=== PATIENT | female | born 1970 | race American Indian/Alaskan Native ===

== ENCOUNTER 2020-12-10 16:26 | Emergency (ER) | payer MEDICAID ==
[2020-12-10 16:32] VITALS: BP 174/106
[2020-12-10] MEDS ORDERED: KETOROLAC 30 MG/1 ML INJ IM ONE (16:44)
--- NOTE | 2020-12-10 16:47 | Emergency Department Report ---
Upper Extremity - HPI Chief Complaint: Extremity Injury, Upper Stated Complaint: RT SHOULDER PAIN Time Seen by Provider: 12/10/20 16:39 Upper Extremity: Right Shoulder Occurred When: 3 Days Mechanism: Unsure Severity: severe Symptoms: Yes Pain with Movement, No Deformity, No Limited Range of Movement Other History: 50-year-old female presents to the emergency room for acute right shoulder pain for 3 days. Patient states that the pain is sharp and constant nothing makes it better. She denies any injury. She states she took a tramadol earlier this morning with no improvement. Patient does not currently have a primary care provider at this time. Patient states minimum movement makes it worse lying down makes it worse. Patient also reported she noted that her blood pressure has been elevated. She is currently on no medications. She has no known drug allergies. ED Review of Systems ROS: Stated complaint: RT SHOULDER PAIN Other details as noted in HPI Comment: All other systems reviewed and negative ED Past Medical Hx - Past Medical History Previous Medical History?: No - Social History Smoking Status: Current Every Day Smoker Substance Use Type: Alcohol - Medications Home Medications: Home Medications Medication Instructions Recorded Confirmed Last Taken Type Diclofenac Sodium 50 mg PO BID PRN #20 tablet. 12/10/20 Unknown Rx methOCARBAMOL [Robaxin TAB] 500 mg PO BID #20 tab 12/10/20 Unknown Rx Upper Extremity Exam - Exam General: Vital signs noted. No distress. Alert and acting appropriately. Head and Torso: Yes Back Tenderness, No Neck Tenderness, No Chest/Lungs Abnormality, No Abdominal Tenderness Shoulder Exam: Yes Shoulder Tenderness, Yes Normal Range of Motion in Shoulder, No Clavicle Tenderness, No Shoulder Deformity, No AC Joint Tenderness Arm Exam: No Arm/Humerus Tenderness, No Arm Deformity Elbow: No Elbow Tenderness, No Normal Range of Motion in Elbow, No Elbow Deformity Forearm: No Forearm Tenderness, No Forearm Deformity, No Pain with Pronation, No Pain with Supination Wrist: Yes Normal ROM in Wrist, No Wrist Tenderness, No Wrist Deformity, No Snuffbox Tenderness, No Pain with Axial Thumb Compression Hand: Yes Normal ROM in Digit(s), No Hand Tenderness, No Hand Deformity, No Digit Tenderness, No Digit(s) Deformity, No Tendon Dysfunction ED Course Vital Signs 12/10/20 16:30 Temperature 98.0 F Pulse Rate 65 Respiratory 20 Rate Blood Pressure 174/106 O2 Sat by Pulse 96 Oximetry ED Medical Decision Making - Radiology Data Radiology results: report reviewed Patient: ANNIE SINGER MR#: [id number] 348 : 1970 Acct:[id number] Age/Sex: 50 / F ADM Date: 12/10/20 Loc: ED Attending Dr: Ordering Physician: SEBASTIAN HERNANDEZ Date of Service: 12/10/20 Procedure(s): XR shoulder 2+V RT Accession Number(s): [id number] cc: SEBASTIAN HERNANDEZ Fluoro Time In Minutes: RIGHT SHOULDER 3 VIEWS INDICATION / CLINICAL INFORMATION: Right shoulder pain. COMPARISON: None available. FINDINGS: BONES/JOINT(S): No acute fracture or subluxation. No significant degenerative changes. SOFT TISSUES: No significant abnormality. ADDITIONAL FINDINGS: None. Signer Name: Alexander De Anda MD Signed: 12/10/2020 5:21 PM Workstation Name: [id number] Transcribed By: MICHELLE Dictated By: Alexander De Anda MD Electronically Authenticated By: Alexander De Anda MD Signed Date/Time: 12/10/201720 DD/ 20 TD/TT: - Medical Decision Making 50-year-old female presents to the emergency room for acute right shoulder pain for 3 days. Patient states that the pain is sharp and constant nothing makes it better. She denies any injury. She states she took a tramadol earlier this morning with no improvement. Patient does not currently have a primary care provider at this time. Patient states minimum movement makes it worse lying down makes it worse. Patient also reported she noted that her blood pressure has been elevated. She is currently on no medications. She has no known drug allergies. X-ray has been ordered. Toradol 30 mg have been ordered. Critical care attestation.: If time is entered above; I have spent that time in minutes in the direct care of this critically ill patient, excluding procedure time. ED Disposition Clinical Impression: Pain of right scapula, Right shoulder strain Disposition: DC-01 TO HOME OR SELFCARE Is pt being admited?: No Does the pt Need Aspirin: No Condition: Stable Instructions: Chest Pain (ED), Muscle Strain, [id number] Additional Instructions: X-ray of right shoulder is negative for any acute findings. As I discussed you may need to follow-up with an orthopedic provider for further evaluation and imaging. I have listed several below for your convenience. Prescriptions: Diclofenac Sodium 50 mg PO BID PRN #20 tablet.dr LORA Reason: Pain , Severe (7-10) methOCARBAMOL [Robaxin TAB] 500 mg PO BID #20 tab Referrals: SAMUEL BURCH MD [Staff Physician] - 3-5 Days ANJEL CARR MD [Staff Physician] - 3-5 Days Forms: Work/School Release Form(ED)
--- NOTE | 2020-12-10 17:26 | XRay Report ---
RIGHT SHOULDER 3 VIEWS INDICATION / CLINICAL INFORMATION: Right shoulder pain. COMPARISON: None available. FINDINGS: BONES/JOINT(S): No acute fracture or subluxation. No significant degenerative changes. SOFT TISSUES: No significant abnormality. ADDITIONAL FINDINGS: None. Signer Name: Alexander De Anda MD Signed: 12/10/2020 5:21 PM Workstation Name: [id number]
== END 2020-12-10 22:01 | disposition home or self-care (01) ==
LOC: ED 16:26
DX: S46.911A Strain of unspecified muscle, fascia and tendon at shoulder and upper arm level, right arm, initial encounter (principal); F17.200 Nicotine dependence, unspecified, uncomplicated; Z79.899 Other long term (current) drug therapy; X58.XXXA Exposure to other specified factors, initial encounter; Y93.89 Activity, other specified; Y92.89 Other specified places as the place of occurrence of the external cause; Y99.8 Other external cause status
CPT/HCPCS: 73030; 96372; 99283; J1885

== ENCOUNTER 2021-04-22 15:38 | Emergency (ER) | payer MEDICAID ==
--- NOTE | 2021-04-22 17:18 | Cat Scan Report ---
NECK CT 04/22/2021 HISTORY: Concern for foreign body in throat. FINDINGS: Unenhanced CT images of the soft tissues of the neck were obtained. Images are evaluated in the axial, coronal, and sagittal planes. There is no evidence of radiopaque foreign body. There is no evidence of abnormal neck mass, fluid collection, or inflammation. Scattered normal-sized lymph nodes are present bilaterally. There is a normal CT appearance to the parotid and submandibular glands. Thyroid gland is unremarkabl e. Degenerative disc and facet changes are present throughout the mid and lower cervical spine. IMPRESSION: No CT evidence of radiopaque foreign body. All CT scans at this location are performed using dose reduction to ALARA by means of automated expos ure control. Signer Name: Miguel Angel Montero MD Signed: 04/22/2021 5:14 PM Workstation Name: [id number]
[2021-04-22] MEDS ORDERED: LIDOCAINE VISCOUS 2% 15 ML ORAL LIQD PO ONE (18:28)
--- NOTE | 2021-04-22 18:37 | Emergency Department Report ---
<YUSRAFADINeeru Myers - Last Filed: 04/22/21 18:27> ED General Adult HPI - General Chief complaint: Sore Throat Stated complaint: THROAT Time Seen by Provider: 04/22/21 18:27 Source: patient Mode of arrival: Ambulatory Limitations: No Limitations - History of Present Illness Initial comments: 51-year-old female presents to the emergency room stating she had swallowed a piece of sausage this morning has been drinking more and states that she feels like esophageal is stuck in her throat. Patient states that she has a history of asthma and esophageal tear. Patient states she has been able to drink water. She has not tried eating anything. She denies any vomiting. -: This morning Severity scale (0 -10): 5 Consistency: constant Worsens with: none Associated Symptoms: denies other symptoms Treatments Prior to Arrival: none - Related Data Previous Rx's Medication Instructions Recorded Last Taken Type Diclofenac Sodium 50 mg PO BID PRN #20 tablet. 12/10/20 Unknown Rx methOCARBAMOL [Robaxin TAB] 500 mg PO BID #20 tab 12/10/20 Unknown Rx Dicyclomine [Bentyl] 20 mg PO Q6H PRN #30 tablet 04/23/21 Unknown Rx Esomeprazole Magnesium [NexIUM] 40 mg PO QDAY #60 capsule. 04/23/21 Unknown Rx Famotidine [Pepcid] 20 mg PO BID #60 tablet 04/23/21 Unknown Rx Ondansetron [Zofran Odt] 4 mg PO Q8HR PRN #15 tab.rapdis 04/23/21 Unknown Rx Allergies Allergy/AdvReac Type Severity Reaction Status Date / Time No Known Allergies Allergy Unverified 12/10/20 16:29 ED Past Medical Hx - Past Medical History Previous Medical History?: Yes Hx Asthma: Yes - Surgical History Past Surgical History?: No - Social History Smoking Status: Current Every Day Smoker Substance Use Type: Alcohol - Medications Home Medications: Home Medications Medication Instructions Recorded Confirmed Last Taken Type Diclofenac Sodium 50 mg PO BID PRN #20 tablet. 12/10/20 Unknown Rx methOCARBAMOL [Robaxin TAB] 500 mg PO BID #20 tab 12/10/20 Unknown Rx Dicyclomine [Bentyl] 20 mg PO Q6H PRN #30 tablet 04/23/21 Unknown Rx Esomeprazole Magnesium [NexIUM] 40 mg PO QDAY #60 capsule. 04/23/21 Unknown Rx Famotidine [Pepcid] 20 mg PO BID #60 tablet 04/23/21 Unknown Rx Ondansetron [Zofran Odt] 4 mg PO Q8HR PRN #15 tab.rapdis 04/23/21 Unknown Rx ED Physical Exam - General Limitations: No Limitations ED Medical Decision Making - Medical Decision Making 51-year-old female presents to the emergency room stating she had swallowed a piece of sausage this morning has been drinking more and states that she feels like esophageal is stuck in her throat. Patient states that she has a history of asthma and esophageal tear. Patient states she has been able to drink water. She has not tried eating anything. She denies any vomiting. Patient has been sitting here comfortably for the last 3 hours with no acute distress. CT soft tissue neck is normal. Patient is talking in complete sentences. She has been prescribed viscous lidocaine and a p.o. challenge. ED Disposition Clinical Impression: Sensation of foreign body in esophagus, Abdominal pain, acute, epigastric, Nausea and vomiting in adult patient GERD (gastroesophageal reflux disease) Qualifiers: Esophagitis presence: esophagitis presence not specified Qualified Code(s): K21.9 - Gastro-esophageal reflux disease without esophagitis Disposition: DC-01 TO HOME OR SELFCARE Is pt being admited?: No Does the pt Need Aspirin: No Condition: Stable Instructions: Nausea and Vomiting, Adult, [id number], Abdominal Pain, Adult, [id number]-[id number], Gastroesophageal Reflux Disease, Adult, [id number]-xb-Rbir Additional Instructions: CAT scan of your neck showed is normal. Chest x-ray showed no acute cardiopulmonary abnormalities and pneumonitis. Gallbladder ultrasound showed fatty liver with mild gallbladder sludge. All lab test results were reviewed and are all nonactionable. Please continue drinking fluids and eat soft diet and follow-up with a primary care provider. I have listed several below for your convenience. Tylenol ibuprofen for pain discomfort. Consider following up with a GI physician Dr. Cesario Hickman for further evaluation in the next 3 to 5 days. Return to the ED immediately if symptoms get worse. Prescriptions: Dicyclomine [Bentyl] 20 mg PO Q6H PRN #30 tablet PRN Reason: Abdominal pain Esomeprazole Magnesium [NexIUM] 40 mg PO QDAY #60 capsule.dr Famotidine [Pepcid] 20 mg PO BID #60 tablet Ondansetron [Zofran Odt] 4 mg PO Q8HR PRN #15 tab.rapdis PRN Reason: Nausea Referrals: GUSTABO NOLASCO MD [Staff Physician] - 3-5 Days NOHEMY GONZALEZ MD [Staff Physician] - 3-5 Days CESARIO HICKMAN MD [Staff Physician] - 3-5 Days Forms: Work/School Release Form(ED) Print Language: FILIPINO <AARON TAMEZ - Last Filed: 04/23/21 01:54> ED Review of Systems ROS: Stated complaint: THROAT Other details as noted in HPI ED Course Vital Signs 04/22/21 04/22/21 04/22/21 16:28 21:53 22:45 Temperature 98.7 F Pulse Rate 91 H 85 Respiratory 20 18 19 Rate Blood Pressure 160/100 Blood Pressure 181/118 [Right] O2 Sat by Pulse 97 Oximetry 04/22/21 04/22/21 04/22/21 23:01 23:15 23:41 Temperature Pulse Rate 98 H 80 Respiratory 19 21 Rate Blood Pressure 152/90 139/91 139/91 Blood Pressure [Right] O2 Sat by Pulse 95 Oximetry ED Medical Decision Making - Lab Data Result diagrams: 04/22/21 21:04 04/22/21 21:04 - EKG Data EKG shows normal: sinus rhythm Rate: normal - EKG Data Interpretation: normal EKG 04/23/21 01:54 EKG shows normal sinus rhythm with a ventricular rate of [address] or T wave abnormalities. - Radiology Data Radiology results: report reviewed, image reviewed [facility] [address] [place] [address] XRay Report Signed Patient: ANNIE SINGER MR#: [id number] 348 : 1970 Acct:[id number] Age/Sex: 51 / F ADM Date: 04/22/21 Loc: ED Attending Dr: Ordering Physician: SEBASTIAN CAMPOS Date of Service: 04/22/21 Procedure(s): XR chest 1V ap Accession Number(s): [id number] cc: SEBASTIAN CAMPOS Fluoro Time In Minutes: CHEST 1 VIEW 04/22/2021 9:22 PM INDICATION / CLINICAL INFORMATION: Epigastric pain. Feels like food is stuck COMPARISON: None available. FINDINGS: SUPPORT DEVICES: None. HEART / MEDIASTINUM: No significant abnormality. LUNGS / PLEURA: No significant pulmonary or pleural abnormality. No pneumothorax. ADDITIONAL FINDINGS: There are healed rib fractures bilaterally. IMPRESSION: 1. No acute findings. Signer Name: Bill Gillespie MD Signed: 04/22/2021 9:28 PM Workstation Name: [id number] Transcribed By: SS Dictated By: Bill Gillespie MD Electronically Authenticated By: Bill Gillespie MD Signed Date/Time: 04/22/212127 DD/ 26 TD/TT: --- [facility] [address] [place] [address] Ultrasound Report Signed Patient: ANNIE SINGER MR#: [id number] 348 : 1970 Acct:[id number] Age/Sex: 51 / F ADM Date: 04/22/21 Loc: ED Attending Dr: Ordering Physician: SEBASTIAN CAMPOS Date of Service: 04/22/21 Procedure(s): US abdomen limited Accession Number(s): [id number] cc: SEBASTIAN CAMPOS Abdominal ultrasound limited INDICATION: Right upper quadrant pain FINDINGS: Limited exam. The liver is fatty. The common bile duct measures 2 mm. No gallbladder wall thickening identified. Mild gallbladder sludge. Aorta is somewhat difficult to visualize from overlying bowel gas. The pancreas was not well visualized from overlying bowel gas IMPRESSION: Fatty liver with gallbladder sludge. Signer Name: Mickey Mckeon MD Signed: 04/23/2021 12:22 AM Workstation Name: [id number] Transcribed By: BC Dictated By: Mickey Mckeon MD Electronically Authenticated By: Mickey Mckeon MD Signed Date/Time: 04/23/2121 DD/ TD/TT: - Medical Decision Making I assumed care of the patient after the patient had been marked for disposition and discharge, however when the nurse went to give the patient her discharge paperwork, the patient's started complaining of epigastric pain and chest pain. I therefore reevaluated the patient following the new complaint of chest pain and epigastric pain, and ordered cardiac work-up on her including EKG and troponin levels. I also ordered gallbladder ultrasound based on the lab test results showing elevated liver transaminitis. Patient was therefore treated for pain with antacids, antiemetics and pain medications. On reevaluation, patient's pain is well controlled medications. All lab test results were re viewed and showed acute leukocytosis of 12,000 consistent with patient's intractable epigastric pain and nausea and vomiting. Other lab test results included elevated transaminitis with ALT of 57 and AST of 63. The rest of the lab test results including initial and 3-hour repeat troponin level 1 n onactionable. EKG shows normal sinus rhythm with a ventricular rate of [address] or T wave abnormalities. Chest x-ray showed no acute cardiopulmonary abnormalities or pneumonitis. The gallbladder ultrasound shows fatty liver with mild gallbladder sludge. is well to because people need to be held accountable on reevaluation, patient's pain is well controlled medications. Patient will discharge pain medications including antiemetics, antacids and pain medications and was advised to follow-up with her primary care physician in 5 to 7 days for reevaluation. Patient also given a referral to the GI physician Dr. Cesario Hickman for follow-up. Patient was advised to contact Dr. Blackwell's office first thing in the morning on Sunday, April 24, 2021 to schedule follow-up appointment. Patient was otherwise advised return to the ED immediately if symptoms get worse. - Differential Diagnosis Gastritis; gastroenteritis; gallstones; GERD;esophagitis; hiatal hernia;ACS Critical care attestation.: If time is entered above; I have spent that time in minutes in the direct care of this critically ill patient, excluding procedure time. ED Disposition Time of Disposition: 01:06
[2021-04-22] MEDS ORDERED: MORPHINE 4 MG/1 ML INJ IV ONE (21:02)
[2021-04-22] MEDS ORDERED: SUCRALFATE 1 GM TAB PO ONE (21:02)
[2021-04-22] MEDS ORDERED: ONDANSETRON 4 MG/2 ML INJ IV ONE (21:02)
[2021-04-22] MEDS ORDERED: FAMOTIDINE 20 MG/2 ML INJ IV ONE (21:02)
[2021-04-22 21:21] LABS: Basophils # (Auto) 0.1 K/mm3 (0.0-0.1); Basophils % (Auto) 1.1 % (0.0-1.8); Eosinophils # (Auto) 0.1 K/mm3 (0.0-0.4); Eosinophils % (Auto) 0.9 % (0.0-4.3); Hemoglobin 15.9 gm/dl (10.1-14.3); Lymphocytes # (Auto) 1.5 K/mm3 (1.2-5.4); Lymphocytes % (Auto) 12.2 % (13.4-35.0); Mean Corpuscular HGB Conc 34 % (30-34); Mean Corpuscular Volume 100 fl (79-97); Monocytes # (Auto) 0.8 K/mm3 (0.0-0.8); Monocytes % (Auto) 6.9 % (0.0-7.3); Platelet Count 181 K/mm3 (140-440); Red Blood Count 4.68 M/mm3 (3.65-5.03); Red Cell Distribution Width 14.7 % (13.2-15.2)
--- NOTE | 2021-04-22 21:32 | XRay Report ---
CHEST 1 VIEW 04/22/2021 9:22 PM INDICATION / CLINICAL INFORMATION: Epigastric pain. Feels like food is stuck COMPARISON: None available. FINDINGS: SUPPORT DEVICES: None. HEART / MEDIASTINUM: No significant abnormality. LUNGS / PLEURA: No significant pulmonary or pleural abnormality. No pneumothorax. ADDITIONAL FINDINGS: There are healed rib fractures bilaterally. IMPRESSION: 1. No acute findings. Signer Name: Bill Gillespie MD Signed: 04/22/2021 9:28 PM Workstation Name: [id number]
[2021-04-22] MEDS: ASPIRIN 325 MG TAB PO ONE ×2 (21:42→21:43)
[2021-04-22 21:46] LABS: Alanine Aminotransferase 57 units/L (7-56); Albumin 3.7 g/dL (3.9-5); Blood Urea Nitrogen 8 mg/dL (7-17); Hemolysis Index 14
[2021-04-22 21:48] LABS: BUN/Creatinine Ratio 16
--- NOTE | 2021-04-23 00:26 | Ultrasound Report ---
Abdominal ultrasound limited INDICATION: Right upper quadrant pain FINDINGS: Limited exam. The liver is fatty. The common bile duct measures 2 mm. No gallbladder wall t hickening identified. Mild gallbladder sludge. Aorta is somewhat difficult to visualize from overlyin g bowel gas. The pancreas was not well visualized from overlying bowel gas IMPRESSION: Fatty liver with gallbladder sludge. Signer Name: Mickey Mckeon MD Signed: 04/23/2021 12:22 AM Workstation Name: [id number]
[2021-04-23 02:07] VITALS: BP 144/98
--- NOTE | 2021-04-27 14:19 | Electrocardiograph Report ---
[facility] Test Date: 2021-04-23 Test Time: 01:50:17 Pat Name: ANNIE SINGER Department: Room: Gender: F Post Splitter: JHONY : 1970 Requested By: AARON TAMEZ Order Number: [id number] Reading MD: Latrell Connelly Measurements Intervals [place] Rate: 74 P: 56 ME: 151 QRS: 59 QRSD: 91 T: 65 QT: 416 QTc: 462 Interpretive Statements Sinus rhythm No previous ECG available for comparison Electronically Signed On 04-27-2021 14:19:21 EDT by Latrell Connelly
== END 2021-04-23 02:00 | disposition home or self-care (01) ==
LOC: ED 15:38
DX: K21.9 Gastro-esophageal reflux disease without esophagitis (principal); R10.13 Epigastric pain; R11.2 Nausea with vomiting, unspecified; R09.89 Other specified symptoms and signs involving the circulatory and respiratory systems; J45.909 Unspecified asthma, uncomplicated; F17.200 Nicotine dependence, unspecified, uncomplicated; Z79.899 Other long term (current) drug therapy
CPT/HCPCS: 36415; 70490; 71045; 76705; 80053; 84484; 85025; 93005; 96374; 96375; 99284; J2270; J2405

== ENCOUNTER 2022-01-18 00:29 | Observation (INO) | payer MEDICAID ==
[2022-01-18] MEDS ORDERED: ONDANSETRON 4 MG/2 ML INJ IV ONE (00:43)
[2022-01-18] MEDS ORDERED: fentaNYL 100 MCG/2 ML INJ IV ONE (00:43)
[2022-01-18] MEDS ORDERED: ASPIRIN 325 MG TAB PO ONE (00:43)
[2022-01-18] MEDS ORDERED: NITROGLYCERIN 2% OINT 1 GM TP ONE (00:43)
--- NOTE | 2022-01-18 01:02 | Emergency Department Report ---
HPI - General Time Seen by Provider: 01/18/22 00:35 - HPI HPI: Room 1 The patient is a 51-year-old female present with a chief complaint of chest pain. Patient states for the past 2 days she has had intermittent substernal chest pain described as sharp in nature. Patient states for the past 2 hours has become constant. Patient admits to shortness of breath and nausea/vomiting with her pain but denies diaphoresis. Patient denies ever having a stress test or cardiac catheterization. ED Past Medical Hx - Past Medical History Hx Hypertension: Yes Hx Asthma: Yes Hx COPD: Yes - Surgical History Additional Surgical History: Left chest tube for pneumothorax - Family History Family history: no significant - Social History Smoking Status: Current Every Day Smoker (Approximately 1/2 pack/day) Substance Use Type: None (Denies illicit drug use), Alcohol (Every other day) - Medications Home Medications: Home Medications Medication Instructions Recorded Confirmed Last Taken Type Diclofenac Sodium 50 mg PO BID PRN #20 tablet. 12/10/20 Unknown Rx methOCARBAMOL [Robaxin TAB] 500 mg PO BID #20 tab 12/10/20 Unknown Rx Dicyclomine [Bentyl] 20 mg PO Q6H PRN #30 tablet 04/23/21 Unknown Rx Esomeprazole Magnesium [NexIUM] 40 mg PO QDAY #60 capsule. 04/23/21 Unknown Rx Famotidine [Pepcid] 20 mg PO BID #60 tablet 04/23/21 Unknown Rx Ondansetron [Zofran Odt] 4 mg PO Q8HR PRN #15 tab.rapdis 04/23/21 Unknown Rx ED Review of Systems ROS: Stated complaint: CHEST PAIN Other details as noted in HPI Constitutional: denies: diaphoresis, fever Eyes: denies: eye pain ENT: denies: throat pain Respiratory: shortness of breath Cardiovascular: chest pain Endocrine: no symptoms reported Gastrointestinal: nausea, vomiting Genitourinary: denies: dysuria Musculoskeletal: denies: back pain Neurological: denies: headache Physical Exam - Physical Exam Physical Exam: GENERAL: The patient is well-developed well-nourished female lying on stretcher intermittently complaining of substernal chest pain. [] HEENT: Normocephalic. Atraumatic. Extraocular motions are intact. Patient has moist mucous membranes. NECK: Supple. Trachea midline CHEST/LUNGS: Clear to auscultation. There is no respiratory distress noted. HEART/CARDIOVASCULAR: Regular. There is no tachycardia. There is no gallop rub or murmur. ABDOMEN: Abdomen is soft, nontender. Patient has normal bowel sounds. There is no abdominal distention. SKIN: There is no rash. There is no edema. There is no diaphoresis. NEURO: The patient is awake, alert, and oriented. The patient is cooperative. The patient has no focal neurologic deficits. The patient has normal speech. GCS 15 MUSCULOSKELETAL: There is no evidence of acute injury. ED Medical Decision Making - Lab Data Result diagrams: 01/18/22 00:53 01/18/22 00:53 Laboratory Tests 01/18/22 01/18/22 01/18/22 00:53 00:53 00:53 WBC 8.3 RBC 4.27 Hgb 15.4 H Hct 46.6 H MCV 109 H MCH 36 H MCHC 33 RDW 17.7 H Plt Count 172 PT 12.9 INR 0.88 Sodium 138 Potassium 3.2 L Chloride 95.5 L Carbon Dioxide 27 Anion Gap 19 BUN 6 L Creatinine 0.5 L Estimated GFR > 60 BUN/Creatinine Ratio 12 Glucose 125 H Calcium 8.5 Total Creatine Kinase 51 CK-MB (CK-2) 1.7 CK-MB (CK-2) Rel Index 3.3 Troponin T < 0.010 Lipase 47 - Radiology Data Radiology results: report reviewed (Chest x-ray), image reviewed (Chest x-ray) interpreted by me: Chest x-ray-no definite focal infiltrates, no pneumothorax [facility] [address] [place] [address] XRay Report Signed Patient: ANNIE SINGER MR#: [id number] 348 : 1970 Acct:[id number] Age/Sex: 51 / F ADM Date: 01/18/22 Loc: ED Attending Dr: Ordering Physician: STEPHANIE MCKOY MD Date of Service: 01/18/22 Procedure(s): XR chest 1V ap Accession Number(s): [id number] cc: STEPHANIE MCKOY MD Fluoro Time In Minutes: CHEST 1 VIEW 01/18/2022 12:53 AM INDICATION / CLINICAL INFORMATION: Chest pain. COMPARISON: 04/22/21. FINDINGS: SUPPORT DEVICES: None. HEART / MEDIASTINUM: The heart size and pulmonary vasculature are normal. The aorta is normal in caliber. LUNGS / PLEURA: There is minimal linear subsegmental atelectasis/scarring in both mid to lower lung zones. No consolidation, mass or effusion. No pneumothorax. ADDITIONAL FINDINGS: Numerous old healed rib fractures bilaterally were present previously. IMPRESSION: Minimal linear scarring/subsegmental atelectasis bilaterally. Signer Name: Martin Vitale MD Signed: 01/18/2022 1:08 AM Workstation Name: [id number] Transcribed By: RT Dictated By: Martin Vitale MD Electronically Authenticated By: Martin Vitale MD Signed Date/Time: 01/18/22107 DD/ 5 TD/TT: - Differential Diagnosis ACS, pericarditis, GERD Critical care attestation.: If time is entered above; I have spent that time in minutes in the direct care of this critically ill patient, excluding procedure time. ED Disposition Clinical Impression: Chest pain Disposition: ADMITTED INPATIENT Is pt being admited?: Yes Does the pt Need Aspirin: Yes Condition: Fair Instructions: Nonspecific Chest Pain, Adult Referrals: NOHEMY GONZALEZ MD [Primary Care Provider] - 3-5 Days Time of Disposition: 02:16 (Hospitalist called (Dr. Bhatt)) Heart Score - HEART Score History: Highly suspicious EKG: Normal Age: 45-65 Risk factors: 1-2 risk factors Troponin: < normal limit HEART Score: 4 - EKG Read Time Time EKG Completed: 01:16 EKG Read Time: 01:29
--- NOTE | 2022-01-18 01:13 | XRay Report ---
CHEST 1 VIEW 01/18/2022 12:53 AM INDICATION / CLINICAL INFORMATION: Chest pain. COMPARISON: 04/22/21. FINDINGS: SUPPORT DEVICES: None. HEART / MEDIASTINUM: The heart size and pulmonary vasculature are normal. The aorta is normal in dariana aedlaide. LUNGS / PLEURA: There is minimal linear subsegmental atelectasis/scarring in both mid to lower lung z ones. No consolidation, mass or effusion. No pneumothorax. ADDITIONAL FINDINGS: Numerous old healed rib fractures bilaterally were present previously. IMPRESSION: Minimal linear scarring/subsegmental atelectasis bilaterally. Signer Name: Martin Vitale MD Signed: 01/18/2022 1:08 AM Workstation Name: [id number]
[2022-01-18 01:18] LABS: Hematocrit 46.6 % (30.3-42.9); Hemoglobin 15.4 gm/dl (10.1-14.3); Mean Corpuscular HGB Conc 33 % (30-34); Mean Corpuscular Volume 109 fl (79-97); Platelet Count 172 K/mm3 (140-440); Red Blood Count 4.27 M/mm3 (3.65-5.03); Red Cell Distribution Width 17.7 % (13.2-15.2)
[2022-01-18 01:31] LABS: Creatine Kinase MB 1.7 ng/mL (0.0-4.0)
[2022-01-18 01:32] LABS: Blood Urea Nitrogen 6 mg/dL (7-17); Calcium 8.5 mg/dL (8.4-10.2); Hemolysis Index 8
[2022-01-18 01:40] LABS: INR 0.88 (0.87-1.13)
[2022-01-18 01:55] LABS: BUN/Creatinine Ratio 12
[2022-01-18] MEDS ORDERED: POTASSIUM CHLORIDE ER 20 MEQ TAB PO ONE (02:15)
[2022-01-18 02:25] LABS: Basophils % (Manual) 0 % (0.0-1.8); Total Cells Counted 100
[2022-01-18 02:27] LABS: Large Platelets Few; Macrocytosis Rare; Platelet Estimate Consistent w Auto
[2022-01-18] MEDS ORDERED: ACETAMINOPHEN 325 MG TAB PO PRN (02:27)
[2022-01-18] MEDS ORDERED: MORPHINE 2 MG/1 ML INJ IV PRN (02:27)
[2022-01-18] MEDS ORDERED: traMADol 50 MG TAB PO PRN (02:27)
[2022-01-18] MEDS ORDERED: NITROGLYCERIN 0.4 MG TAB SUBL SL PRN (02:27)
--- NOTE | 2022-01-18 02:34 | History and Physical Report ---
History of Present Illness Date of examination: 01/18/22 Date of admission: 01/18/22 Chief complaint: Chest pain History of present illness: 51-year-old female with history of tobacco abuse, hypertension and COPD was brought to the emergency room because of chest pain 10/10 for the past 2 days she has had intermittent substernal chest pain described as sharp in nature. Patient states for the past 2 hours has become constant. Patient admits to shortness of breath and nausea/vomiting with her pain but denies diaphoresis. Patient denies ever having a stress test or cardiac catheterization. In the emergency room initial cardiac enzyme is negative troponin is 0.010, chest x-ray shows minimal linear scarring/subsegmental atelectasis bilaterally. We are going to admit the patient we will put the patient on chest pain pathway will do a Lexiscan Past History Past Medical History: COPD, hypertension, other (Asthma tobacco abuse) Past Surgical History: Other (Left chest tube for pneumothorax) Social history: smoking, other (Alcohol every other day) Family history: no significant family history Medications and Allergies Allergies Allergy/AdvReac Type Severity Reaction Status Date / Time No Known Allergies Allergy Verified 01/18/22 01:05 Home Medications Medication Instructions Recorded Confirmed Last Taken Type Diclofenac Sodium 50 mg PO BID PRN #20 tablet. 12/10/20 Unknown Rx methOCARBAMOL [Robaxin TAB] 500 mg PO BID #20 tab 12/10/20 Unknown Rx Dicyclomine [Bentyl] 20 mg PO Q6H PRN #30 tablet 04/23/21 Unknown Rx Esomeprazole Magnesium [NexIUM] 40 mg PO QDAY #60 capsule. 04/23/21 Unknown Rx Famotidine [Pepcid] 20 mg PO BID #60 tablet 04/23/21 Unknown Rx Ondansetron [Zofran Odt] 4 mg PO Q8HR PRN #15 tab.rapdis 04/23/21 Unknown Rx Review of Systems All systems: negative Cardiovascular: chest pain, shortness of breath, dyspnea on exertion Respiratory: shortness of breath, dyspnea on exertion Gastrointestinal: nausea, vomiting Exam - Constitutional Vitals: Temp Pulse Resp BP Pulse Ox 98.4 F 110 H 14 110/72 98 01/18/22 01:07 01/18/22 01:30 01/18/22 01:30 01/18/22 01:30 01/18/22 01:30 General appearance: Present: no acute distress, well-nourished - EENT Eyes: Present: PERRL ENT: hearing intact, clear oral mucosa - Neck Neck: Present: supple, normal ROM - Respiratory Respiratory effort: normal Respiratory: bilateral: diminished - Cardiovascular Heart Sounds: Present: S1 & S2. Absent: rub, click - Extremities Extremities: pulses symmetrical, No edema Peripheral Pulses: within normal limits - Abdominal General gastrointestinal: Present: soft, non-tender, non-distended, normal bowel sounds Female genitourinary: Present: normal - Integumentary Integumentary: Present: clear, warm, dry - Musculoskeletal Musculoskeletal: gait normal, strength equal bilaterally - Psychiatric Psychiatric: appropriate mood/affect, intact judgment & insight - Neurologic Neurologic: CNII-XII intact, moves all extremities HEART Score - HEART Score EKG: Normal Age: 45-65 Risk factors: 1-2 risk factors Troponin: Troponin T < 0.010 ng/mL (0.00-0.029) 01/18/22 00:53 Troponin: < normal limit Results - Labs CBC & Chem 7: 01/18/22 00:53 01/18/22 00:53 Labs: Laboratory Last Values WBC 8.3 K/mm3 (4.5-11.0) 01/18/22 00:53 RBC 4.27 M/mm3 (3.65-5.03) 01/18/22 00:53 Hgb 15.4 gm/dl (10.1-14.3) H 01/18/22 00:53 Hct 46.6 % (30.3-42.9) H 01/18/22 00:53 MCV 109 fl (79-97) H 01/18/22 00:53 MCH 36 pg (28-32) H 01/18/22 00:53 MCHC 33 % (30-34) 01/18/22 00:53 RDW 17.7 % (13.2-15.2) H 01/18/22 00:53 Plt Count 172 K/mm3 (140-440) 01/18/22 00:53 Add Manual Diff Complete 01/18/22 00:53 Total Counted 100 01/18/22 00:53 Seg Neuts % (Manual) 61.0 % (40.0-70.0) 01/18/22 00:53 Band Neutrophils % 0 % 01/18/22 00:53 Lymphocytes % (Manual) 33.0 % (13.4-35.0) 01/18/22 00:53 Reactive Lymphs % (Man) 0 % 01/18/22 00:53 Monocytes % (Manual) 5.0 % (0.0-7.3) 01/18/22 00:53 Eosinophils % (Manual) 1.0 % (0.0-4.3) 01/18/22 00:53 Basophils % (Manual) 0 % (0.0-1.8) 01/18/22 00:53 Metamyelocytes % 0 % 01/18/22 00:53 Myelocytes % 0 % 01/18/22 00:53 Promyelocytes % 0 % 01/18/22 00:53 Blast Cells % 0 % 01/18/22 00:53 Nucleated RBC % Not Reportable 01/18/22 00:53 Seg Neutrophils # Man 5.1 K/mm3 (1.8-7.7) 01/18/22 00:53 Band Neutrophils # 0.0 K/mm3 01/18/22 00:53 Lymphocytes # (Manual) 2.7 K/mm3 (1.2-5.4) 01/18/22 00:53 Abs React Lymphs (Man) 0.0 K/mm3 01/18/22 00:53 Monocytes # (Manual) 0.4 K/mm3 (0.0-0.8) 01/18/22 00:53 Eosinophils # (Manual) 0.1 K/mm3 (0.0-0.4) 01/18/22 00:53 Basophils # (Manual) 0.0 K/mm3 (0.0-0.1) 01/18/22 00:53 Metamyelocytes # 0.0 K/mm3 01/18/22 00:53 Myelocytes # 0.0 K/mm3 01/18/22 00:53 Promyelocytes # 0.0 K/mm3 01/18/22 00:53 Blast Cells # 0.0 K/mm3 01/18/22 00:53 WBC Morphology Not Reportable 01/18/22 00:53 Hypersegmented Neuts Not Reportable 01/18/22 00:53 Hyposegmented Neuts Not Reportable 01/18/22 00:53 Hypogranular Neuts Not Reportable 01/18/22 00:53 Smudge Cells Not Reportable 01/18/22 00:53 Toxic Granulation Not Reportable 01/18/22 00:53 Toxic Vacuolation Not Reportable 01/18/22 00:53 Dohle Bodies Not Reportable 01/18/22 00:53 Pelger-Huet Anomaly Not Reportable 01/18/22 00:53 Trell Rods Not Reportable 01/18/22 00:53 Platelet Estimate Consistent w auto 01/18/22 00:53 Clumped Platelets Not Reportable 01/18/22 00:53 Plt Clumps, EDTA Not Reportable 01/18/22 00:53 Large Platelets Few 01/18/22 00:53 Giant Platelets Not Reportable 01/18/22 00:53 Platelet Satelliting Not Reportable 01/18/22 00:53 Plt Morphology Comment Not Reportable 01/18/22 00:53 RBC Morphology Not Reportable 01/18/22 00:53 Dimorphic RBCs Not Reportable 01/18/22 00:53 Polychromasia Not Reportable 01/18/22 00:53 Hypochromasia Not Reportable 01/18/22 00:53 Poikilocytosis Not Reportable 01/18/22 00:53 Anisocytosis Not Reportable 01/18/22 00:53 Microcytosis Not Reportable 01/18/22 00:53 Macrocytosis Rare 01/18/22 00:53 Spherocytes Not Reportable 01/18/22 00:53 Pappenheimer Bodies Not Reportable 01/18/22 00:53 Sickle Cells Not Reportable 01/18/22 00:53 Target Cells Not Reportable 01/18/22 00:53 Tear Drop Cells Not Reportable 01/18/22 00:53 Ovalocytes Not Reportable 01/18/22 00:53 Helmet Cells Not Reportable 01/18/22 00:53 [place] Bodies Not Reportable 01/18/22 00:53 [place] Rings Not Reportable 01/18/22 00:53 [place] Cells Not Reportable 01/18/22 00:53 Bite Cells Not Reportable 01/18/22 00:53 Crenated Cell Not Reportable 01/18/22 00:53 Elliptocytes Not Reportable 01/18/22 00:53 Acanthocytes (Spur) Not Reportable 01/18/22 00:53 Rouleaux Not Reportable 01/18/22 00:53 Hemoglobin C Crystals Not Reportable 01/18/22 00:53 Schistocytes Not Reportable 01/18/22 00:53 Malaria parasites Not Reportable 01/18/22 00:53 [place] Bodies Not Reportable 01/18/22 00:53 Hem Pathologist Commnt No 01/18/22 00:53 PT 12.9 Sec. (12.2-14.9) 01/18/22 00:53 INR 0.88 (0.87-1.13) 01/18/22 00:53 Sodium 138 mmol/L (137-145) 01/18/22 00:53 Potassium 3.2 mmol/L (3.6-5.0) L 01/18/22 00:53 Chloride 95.5 mmol/L (98-107) L 01/18/22 00:53 Carbon Dioxide 27 mmol/L (22-30) 01/18/22 00:53 Anion Gap 19 mmol/L 01/18/22 00:53 BUN 6 mg/dL (7-17) L 01/18/22 00:53 Creatinine 0.5 mg/dL (0.6-1.2) L 01/18/22 00:53 Estimated GFR > 60 ml/min 01/18/22 00:53 BUN/Creatinine Ratio 12 % 01/18/22 00:53 Glucose 125 mg/dL (65-100) H 01/18/22 00:53 Calcium 8.5 mg/dL (8.4-10.2) 01/18/22 00:53 Total Creatine Kinase 51 units/L (30-135) 01/18/22 00:53 CK-MB (CK-2) 1.7 ng/mL (0.0-4.0) 01/18/22 00:53 CK-MB (CK-2) Rel Index 3.3 (0-4) 01/18/22 00:53 Troponin T < 0.010 ng/mL (0.00-0.029) 01/18/22 00:53 Lipase 47 units/L (13-60) 01/18/22 00:53 - Imaging and Cardiology Chest x-ray: report reviewed Assessment and Plan VTE prophylaxis?: Chemical Plan of care discussed with patient/family: Yes - Patient Problems (1) Acute coronary syndrome Current Visit: Yes Status: Acute Plan to address problem: Admit the patient to the cardiac telemetry. Aspirin 325 mg p.o. daily. Lipitor 40 mg p.o. daily. Nitroglycerin. Serial cardiac enzymes. Lexiscan. Consult cardiology if needed (2) Hypertension Current Visit: Yes Status: Acute Plan to address problem: Hydralazine 10 mg IV every 6 hours as needed. We continue the home medication (3) COPD (chronic obstructive pulmonary disease) Current Visit: Yes Status: Acute Plan to address problem: Oxygen via nasal cannula 3 L/min. DuoNeb by nebulizer every 4 hours. Albuterol via nebulizer every 4 hours as needed (4) Tobacco abuse Current Visit: Yes Status: Acute Plan to address problem: Nicotine patch 14 mg to the skin daily. We counseled regarding quitting smoking (5) DVT prophylaxis Current Visit: Yes Status: Acute Plan to address problem: Heparin 5000 units subcu every 12 hours for DVT prophylaxis. Protonix 40 mg p.o. daily for GI prophylaxis. Patient is a full code
[2022-01-18 02:58] LABS: Hematocrit 43.2 % (30.3-42.9); Hemoglobin 14.5 gm/dl (10.1-14.3); Mean Corpuscular HGB Conc 34 % (30-34); Mean Corpuscular Volume 108 fl (79-97); Platelet Count 152 K/mm3 (140-440); Red Blood Count 3.99 M/mm3 (3.65-5.03); Red Cell Distribution Width 18.1 % (13.2-15.2)
[2022-01-18 03:17] LABS: Blood Urea Nitrogen 6 mg/dL (7-17); Calcium 8.3 mg/dL (8.4-10.2); Hemolysis Index 5
[2022-01-18 03:22] LABS: BUN/Creatinine Ratio 12
[2022-01-18] MEDS ORDERED: NICOTINE 14 MG/24 HR PATCH TD ONE (03:35)
[2022-01-18] MEDS ORDERED: SODIUM CHLORIDE 0.9% 1000 ML 1,000 ML IV ONE (03:48)
[2022-01-18] MEDS ORDERED: SODIUM CHLORIDE 0.9% 1000 ML 1,000 ML IV SCH (04:00)
[2022-01-18 05:05] LABS: Basophils % (Manual) 0 % (0.0-1.8); Eosinophils % (Manual) 0 % (0.0-4.3); Macrocytosis Rare; Platelet Estimate Consistent w Auto; Total Cells Counted 100
[2022-01-18] MEDS ORDERED: REGADENOSON 0.4 MG/5 ML INJ IV ONE (07:53)
[2022-01-18] MEDS ORDERED: PANTOPRAZOLE 40 MG TAB PO SCH (10:00)
[2022-01-18] MEDS ORDERED: HEPARIN 5,000 UNIT/1 ML VIAL SUB-Q SCH (10:00)
--- NOTE | 2022-01-18 13:44 | Nuclear Medicine Report ---
APPROVED REPORT Exam: Nuclear Stress Test Indication: Chest pain [facility] Ht: 5 ft 7 in Wt: 180 lbs BSA: 1.93 m2 HR: 96 bpmBP: 107/82 mmHgBMI: 28.18 Rhythm: NSR Stress Test Details Stress Test: Pharmacologic stress testing performed using 0.4 mg of regadenoson per 5 mL given IV over 10 seconds. Reason for pharmacologic stress test: physical limitation. HR Resting HR: 94 bpm Max HR Achieved: 123 bpm Max Heart Rate (APMHR): 169 bpm Target HR (85% APMHR): 143 bpm % of APMHR: 72 Recovery HR: 109 bpm HR response to stress: Normal HR response to stress BP Resting BP: 107/75 mmHg Max BP: 125/86 mmHg Recovery BP: 111/81 mmHg BP response to stress: Normal blood pressure response to stress. ECG Resting ECG: Sinus Rhythm Stress ECG: Sinus Tachycardia ST Change: None Arrhythmia: None Recovery ECG: Sinus Tachycardia Recovery ST Change: None Recovery Arrhythmia: None Clinical Reason for Termination: Completed protocol Stress Symptoms: None Stress ECG Conclusion No chest pain and no ST changes with pharmacologic stress. Myocardial perfusion images are pending. NM EXAM: Myocardial Perfusion REST/STRESS Imaging Protocol: Rest Tc-99m/Stress Tc-99m 1 day Resting Data Rest SPECT myocardial perfusion imaging was performed in supine position 45 minutes following the intravenous injection of 10 mCi of Tc-99m Myoview. Time of rest injection: 714 Date: 01/18/2022 Pharmacologic Stress Pharmacologic stress test was performed by injecting Regadenoson 0.4 mg IV push followed by the intravenous injection of 28 mCi of Tc-99m Myoview. Time of stress injection: 944 Date: 01/18/2022 Study Data TID = 1.08. Perfusion Wall Motion Normal left ventricular systolic function, ejection fraction 74%. Nuclear Conclusion ECG Findings: negative for ischemia Clinical Findings: negative for ischemia Nuclear Findings: negative for ischemia Left Ventricular Function: normal Risk Study: low Normal rest and stress myocardial perfusion study, normal left ventricular systolic function, ejection fraction 74%. Normal study. Conclusion No chest pain and no ST changes with pharmacologic stress. Myocardial perfusion images are pending.
--- NOTE | 2022-01-18 15:02 | Discharge Summary ---
Providers - Providers Date of Admission: 01/18/22 02:27 Date of discharge: 01/18/22 Attending physician: KATHY SIFUENTES 01/18/22 Consult to Cardiac Rehabilitation [CONS] Routine Reason For Exam: Phase I Primary care physician: NOHEMY GONZALEZ Hospitalization Condition: Fair Hospital course: 51-year-old female with history of tobacco abuse, hypertension and COPD was brought to the emergency room because of chest pain 10/10 for the past 2 days she has had intermittent substernal chest pain described as sharp in nature. Patient states for the past 2 hours has become constant. Patient admits to shortness of breath and nausea/vomiting with her pain but denies diaphoresis. Patient denies ever having a stress test or cardiac catheterization. In the emergency room initial cardiac enzyme is negative troponin is 0.010, chest x-ray shows minimal linear scarring/subsegmental atelectasis bilaterally. We are going to admit the patient we will put the patient on chest pain pathway will do a Lexiscan. - Patient Problems (1) Acute coronary syndrome Current Visit: Yes Status: Acute Plan to address problem: Stress test was negative Patient counseled about stopping smoking Patient states that she is stop smoking Patient was given the option of Chantix Patient does not want Chantix Patient wants to do it by herself Patient states she has the willpower to stop it without medications (2) Hypertension Current Visit: Yes Status: Acute Plan to address problem: Continue home antihypertensives (3) COPD (chronic obstructive pulmonary disease) Current Visit: Yes Status: Acute Plan to address problem: Patient initiated on nebulizer treatments and oral inhalers in the form of Ventolin HFA 2 puffs 4 times daily. Also duo nebs for the nebulizer machine Patient was counseled about the nebulizer machine (4) Tobacco abuse Current Visit: Yes Status: Acute Plan to address problem:. Completed6 Patient counseled about stopping smoking Patient states that she is stop smoking Patient was given the option of Chantix Patient does not want Chantix Patient wants to do it by herself Patient states she has the willpower to stop it without medications (5) advance care planning Disease education conducted, care plan discussed, diagnosis discussed, prognosis discussed. Patient is full code. Patient's family member acknowledges understanding and agreement. Disposition: 01 HOME / SELF CARE / HOMELESS Final Discharge Diagnosis (Prints w/discharge instructions): Acute coronary syndrome. Hypertension. COPD. Nicotine dependence. Advance care planning - Discharge Diagnoses (1) Acute coronary syndrome Status: Acute (2) COPD (chronic obstructive pulmonary disease) Status: Acute (3) Hypertension Status: Acute (4) Tobacco abuse Status: Acute (5) DVT prophylaxis Status: Acute Core Measure Documentation - Palliative Care Palliative Care/ Comfort Measures: Not Applicable - Core Measures Any of the following diagnoses?: none Exam - Constitutional Vitals: Temp Pulse Resp BP Pulse Ox 98.1 F 100 H 20 121/83 90 01/18/22 08:00 01/18/22 08:00 01/18/22 08:00 01/18/22 10:06 01/18/22 08:00 General appearance: Present: no acute distress, well-nourished - EENT Eyes: Present: PERRL ENT: hearing intact, clear oral mucosa - Neck Neck: Present: supple, normal ROM - Respiratory Respiratory effort: normal Respiratory: bilateral: CTA - Cardiovascular Heart rate: 78 Rhythm: regular Heart Sounds: Present: S1 & S2. Absent: rub, click - Extremities Extremities: pulses symmetrical, No edema Peripheral Pulses: within normal limits - Abdominal General gastrointestinal: Present: soft, non-tender, non-distended, normal bowel sounds Female genitourinary: Present: normal - Integumentary Integumentary: Present: clear, warm, dry - Musculoskeletal Musculoskeletal: gait normal, strength equal bilaterally - Psychiatric Psychiatric: appropriate mood/affect, intact judgment & insight - Neurologic Neurologic: CNII-XII intact, moves all extremities Plan Activity: no restrictions Diet: low fat, low cholesterol, low salt Follow up with: NOHEMY GONZALEZ MD [Primary Care Provider] - 3-5 Days MODESTO MADRIGAL MD [Staff Physician] - 7 Days
[2022-01-18 15:54] VITALS: BP 134/92
[2022-01-19] MEDS ORDERED: ASPIRIN EC 325 MG TAB PO SCH (10:00)
--- NOTE | 2022-01-19 11:22 | Electrocardiograph Report ---
[facility] Test Date: 2022-01-18 Test Time: 01:16:41 Pat Name: ANNIE SINGER Department: Room: A480 1 Gender: F [place] [employer]: JHONY : 1970 Requested By: STEPHANIE MCKOY Order Number: [id number] Reading MD: Vin Rapp Measurements Intervals [place] Rate: 110 P: 70 ID: 140 QRS: 53 QRSD: 81 T: 39 QT: 365 QTc: 495 Interpretive Statements Sinus tachycardia Compared to ECG 04/23/2021 01:50:17 Sinus rhythm no longer present Electronically Signed On 01-19-2022 11:22:04 EDT by Vin Rapp
--- NOTE | 2022-01-19 11:24 | Electrocardiograph Report ---
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
== END 2022-01-18 17:55 | disposition home or self-care (01) ==
LOC: ED 00:29 → INTOOBSV 02:27 → 4A 02:27
PROVIDERS: ADMIT Hospitalist; ATTEND Internal Medicine
DX: I24.9 Acute ischemic heart disease, unspecified (principal); R07.89 Other chest pain; I10 Essential (primary) hypertension; J44.9 Chronic obstructive pulmonary disease, unspecified; F17.200 Nicotine dependence, unspecified, uncomplicated; Z79.899 Other long term (current) drug therapy; Z98.890 Other specified postprocedural states
CPT/HCPCS: 36415; 71045; 78452; 80048; 82550; 82553; 83690; 84484; 85007; 85025; 85610; 93005; 93017; 96361; 96372; 96374; 96375; 99285; A9502; G0378; J1644; J2270; J2405; J2785; J3010; J7030; Q0162